=== PATIENT | female | born 1950 | race Caucasian/White ===

== ENCOUNTER → 2016-09-30 | Day surgery (SDC) | payer MEDICARE ==
[~2016-09-30] MED LIST: ACULAR0.4 ML OPH; ADVAIR DISKUS 21 DSK INH; BALSALAZIDE DI750 MG PO; BENTYL10 MG PO; CALCIUM WITH D1 CTB PO; CIPRO500 MG PO; FLEXERIL10 MG PO; FOLIC ACID1 MG PO; FORTICAL200 IU/ACT NAS; FORTICAL200 IU/ACT NS; FOSAMAX70 M1 PO; HYDROCODONE BIT1 T11 PO; LOMOTIL 0.025 M1 TA1 PO; LOMOTIL 0.025 M1 TAB PO; LOPID600 MG PO; METOPROLOL SR50 MG PO; MOTRIN600 MG PO; NORVASC10 MG PO; OCUFLOX 0.3% 5 M5 ML OPH; OLANZAPINE5 MG PO; PEPCID40 MG PO; PRED FORTE 1 ML1 ML OP; PRILOSEC20 MG PO; PRILOSEC40 M1 PO; PROZAC20 MG PO; QUESTRAN LIGHT4 GM PO; TRAZODONE150 MG PO; VALIUM10 MG PO; VALIUM5 MG PO
--- NOTE | ~2016-09-30 | O ---
[place], [place] OPERATIVE NOTE NAME: [id number] UNIT #: [id number] ROOM: DOCTOR: RITO MARTINEZJAMAICA BIRTHDATE: [birth year] DOS: 09/30/2016 This is a 65-year-old patient who was presented with chief complaint of diarrhea, undergone investigation. The patient has been given sulfasalazine. Apparently, the patient developed more diarrhea may be because she is allergic to sulfa moiety of the sulfasalazine. FAMILY HISTORY: Noncontributory. PAST MEDICAL HISTORY: Hypertension, hypercholesterolemia, anxiety, fibromyalgia. PAST SURGICAL HISTORY: Tubal ligation, hysterectomy and ankle tendon repair. PROCEDURE: Today's procedure part of investigation is colonoscopy plus polypectomy plus biopsy. PREMEDICATION: Versed and Diprivan. SCOPE: Olympus folding colonoscope 10L video. REPORT: After putting the patient in the left lateral position and after application of lubricant to the scope, the scope was introduced. Thereafter, under direct visualization, advanced through the length of colon without difficulty. Base of the cecum explored, appendiceal orifice identified, and ileocecal valve was defined. Sessile polypoid lesion from base of cecum was identified with piecemeal polypectomy removed. Ileocecal valve was photographed. The scope was gradually withdrawn from ascending, transverse, and descending colon. Random biopsies from transverse colon was obtained. The patient extubated, tolerated the procedure well. IMPRESSION: 1. Sessile polypoid lesion of cecum, status post piecemeal polypectomy. 2. History of diarrhea, status post multiple biopsies, random colon biopsies ruling out collagenous colitis. On the other hand, the patient remains with multiple bowel movements. Apparently, the patient is not that reliable as far as information and compliance is concerned. However, we are going to try her on Questran 1 pack b.i.d. as well as famotidine 40 mg daily. We are going to discontinue her omeprazole in case this is side effect of omeprazole. We are going to do a celiac sprue panel, and we are going to start her on balsalazide 750 mg 2 tablets b.i.d. to see if we can bring some relief in management of her diarrhea while investigation and the workup in progress. Thank you very much indeed. [place], [place] OPERATIVE NOTE NAME: SHERMAN CARLOS UNIT #: [id number] ROOM: DOCTOR: RITO MARTINEZ,[place]AMA[place] BIRTHDATE: [birth year] J[place] VERAS MD CM:OPRECORD:OPERATIVE NOTE [id number] NEHEMIAS VERAS MD 09/30/161946 interface
[2016-09-30 12:44] VITALS: BP 152/71
[2016-09-30 14:03] VITALS: BP 128/54
[2016-09-30 14:18] VITALS: BP 134/81
[2016-09-30 14:33] VITALS: BP 122/65
== END | disposition home or self-care (01) ==
LOC: SDC 09-28 08:00
DX: D12.0 Benign neoplasm of cecum (principal); I10 Essential (primary) hypertension; E78.00 Pure hypercholesterolemia, unspecified; F41.9 Anxiety disorder, unspecified; M79.7 Fibromyalgia; J44.9 Chronic obstructive pulmonary disease, unspecified; F32.9 Major depressive disorder, single episode, unspecified; I51.7 Cardiomegaly; M19.90 Unspecified osteoarthritis, unspecified site; K21.9 Gastro-esophageal reflux disease without esophagitis; Z98.890 Other specified postprocedural states; Z90.710 Acquired absence of both cervix and uterus; Z98.51 Tubal ligation status; Z87.891 Personal history of nicotine dependence; Z82.3 Family history of stroke

== ENCOUNTER → 2016-10-05 | Outpatient (CLI) | payer MEDICARE ==
[2016-10-06 14:11] LABS: t-TRANSGLUTAMINASE (tTG) IgG <2 U/mL (0-5)
== END | disposition home or self-care (01) ==
LOC: LAB 10:34
PROVIDERS: Internal Medicine Gastroenterology
DX: K90.0 Celiac disease (principal)

== ENCOUNTER → 2016-11-02 | Outpatient (CLI) | payer MEDICARE, OTHER | END | disposition home or self-care (01) | LOC: LAB 08:54 | DX: R19.7 Diarrhea, unspecified (principal) ==

== ENCOUNTER → 2016-11-11 | Outpatient (CLI) | payer MEDICARE, OTHER ==
[2016-11-14 17:04] LABS: CREATININE, RANDOM URINE 68.6 mg/dL (Not Estab.)
== END | disposition home or self-care (01) ==
LOC: LAB 11:24
PROVIDERS: Internal Medicine Gastroenterology
DX: R19.7 Diarrhea, unspecified (principal)

== ENCOUNTER → 2016-11-16 | Outpatient (CLI) | payer MEDICARE, OTHER | END | disposition home or self-care (01) | LOC: CT 14:46 | DX: A08.8 Other specified intestinal infections (principal); R11.2 Nausea with vomiting, unspecified ==

== ENCOUNTER 2017-04-19 10:22 | Emergency (ER) | payer MEDICARE, OTHER ==
[~2017-04-19] VITALS: Ht 149.8 cm; Wt 63.5 kg
[2017-04-19 10:30] VITALS: BP 179/78
[2017-04-19] MEDS ORDERED: NAPROSYN500 MG PO (10:46)
== END 2017-04-19 12:35 | disposition home or self-care (01) ==
LOC: ED 10:22
DX: S42.252A Displaced fracture of greater tuberosity of left humerus, initial encounter for closed fracture (principal); F10.10 Alcohol abuse, uncomplicated; Z88.2 Allergy status to sulfonamides; Z90.710 Acquired absence of both cervix and uterus; Z79.899 Other long term (current) drug therapy; W11.XXXA Fall on and from ladder, initial encounter; Y93.89 Activity, other specified; Y92.89 Other specified places as the place of occurrence of the external cause; Y99.8 Other external cause status

== ENCOUNTER → 2017-05-02 | Outpatient (CLI) | payer MEDICARE, OTHER ==
[~2017-05-02] MED LIST changes: +NAPROSYN500 MG PO
== END ==
LOC: CT 13:46
DX: S42.302D Unspecified fracture of shaft of humerus, left arm, subsequent encounter for fracture with routine healing (principal); M19.012 Primary osteoarthritis, left shoulder; M25.412 Effusion, left shoulder; X58.XXXD Exposure to other specified factors, subsequent encounter

== ENCOUNTER → 2017-08-28 | Outpatient (CLI) | payer MEDICARE, OTHER | END | disposition home or self-care (01) | LOC: RAD 12:10 | DX: M47.816 Spondylosis without myelopathy or radiculopathy, lumbar region (principal) ==

== ENCOUNTER → 2017-09-13 | Outpatient (CLI) | payer MEDICARE, OTHER | END | disposition home or self-care (01) | LOC: MRI 01:51 | DX: M47.816 Spondylosis without myelopathy or radiculopathy, lumbar region (principal) ==

== ENCOUNTER → 2018-02-08 | Outpatient (CLI) | payer MEDICARE, OTHER | END | disposition home or self-care (01) | LOC: RAD 12:53 | DX: Z13.820 Encounter for screening for osteoporosis (principal); Z78.0 Asymptomatic menopausal state ==

== ENCOUNTER → 2018-04-16 | Outpatient (CLI) | payer MEDICARE, OTHER | END | disposition home or self-care (01) | LOC: US 17:00 | DX: M54.2 Cervicalgia (principal); G89.29 Other chronic pain ==

== ENCOUNTER → 2018-08-23 | Outpatient (CLI) | payer MEDICARE, OTHER ==
[~2018-08-23] MED LIST changes: +KEFLEX500 M1 PO
== END | disposition home or self-care (01) ==
LOC: US 03:02
DX: E07.9 Disorder of thyroid, unspecified (principal)

== ENCOUNTER → 2019-10-21 | Outpatient (CLI) | payer MEDICARE, OTHER | END | disposition home or self-care (01) | LOC: CT 12:44 | DX: Z47.1 Aftercare following joint replacement surgery (principal); M25.512 Pain in left shoulder ==

== ENCOUNTER → 2020-05-04 | Outpatient (CLI) | payer MEDICARE, OTHER | END | disposition home or self-care (01) | LOC: MAMMO 10:57 | PROVIDERS: ATTEND Internal Medicine | DX: Z12.31 Encounter for screening mammogram for malignant neoplasm of breast (principal) ==

== ENCOUNTER → 2021-02-17 | Outpatient (CLI) | payer MEDICARE, OTHER | END | disposition home or self-care (01) | LOC: MRI 02-10 13:00 | PROVIDERS: ATTEND Physical Medicine & Rehabilitation | DX: H70.91 Unspecified mastoiditis, right ear (principal); M50.223 Other cervical disc displacement at C6-C7 level ==

== ENCOUNTER 2021-04-10 17:11 | Inpatient (IN) | payer MEDICARE, OTHER ==
[~2021-04-10] VITALS: Ht 149.8 cm; Wt 66.0 kg
[2021-04-10 17:15] VITALS: BP 138/58
[2021-04-10 17:51] LABS: BASO # 0.1 10*3/uL (0.0-0.1); BASO % 0.6 % (0.0-1.0); EOS # 0.3 10*3/uL (0.0-0.4); EOS % 3.2 % (1.0-4.0); HEMATOCRIT 38.8 % (37.0-47.0); LYMPH # 1.5 10*3/uL (1.3-4.4); LYMPH % 14.4 % (27.0-41.0); MEAN CELL VOLUME 94.9 fl (81.0-99.0); MEAN CORPUSCULAR HGB 31.1 pg (27.0-31.0); MEAN CORPUSCULAR HGB CONC 32.7 g/dl (33.0-37.0); MONO # 0.7 10*3/uL (0.1-1.0); MONO % 6.6 % (3.0-9.0); NEUT # 7.9 10*3/uL (2.3-7.9); NEUT % 74.9 % (47.0-73.0); PLATELET COUNT AUTOMATED 233 10*3/uL (130-400); RED BLOOD COUNT 4.09 10*6/uL (4.10-5.10); RED CELL DISTRI WIDTH 13.1 % (0-14.5); WHITE BLOOD COUNT 10.6 10*3/uL (4.8-10.8)
[2021-04-10 18:10] LABS: ALBUMIN 3.5 gm/dl (3.1-4.5); ALKALINE PHOSPHATASE 63 U/L (45-117); BUN 12 mg/dl (7-24); CHLORIDE 105 mmol/L (98-107); CREATININE 1.04 mg/dL (0.55-1.02); POTASSIUM 3.3 mmol/L (3.5-5.1); SGOT/AST 19 IU/L (3-35); SGPT/ALT 38 U/L (12-78); SODIUM 140 mmol/L (136-145)
[2021-04-10 19:12] VITALS: BP 153/66
[2021-04-10] MEDS ORDERED: HYDROCHLOROTH12.5 M2 PO (20:15)
[2021-04-10] MEDS ORDERED: DICYCLOMINE HCL10 MG PO (20:16)
[2021-04-10] MEDS ORDERED: TOPCARE ARTHRI650 MG PO (20:17)
[2021-04-10] MEDS ORDERED: FLUOXETINE HYDR20 M1 PO (20:17)
[2021-04-10] MEDS ORDERED: TRAZODONE100 MG PO (20:19)
[2021-04-10] MEDS ORDERED: METOPROLOL TART50 M1 PO (20:21)
[2021-04-10 23:35] VITALS: BP 144/69
[2021-04-11] VITALS (8 sets, daily range): BP systolic 130–165; BP diastolic 52–80
[2021-04-11 05:59] LABS: BASO % 0.4 % (0.0-1.0); EOS # 0.2 10*3/uL (0.0-0.4); EOS % 2.2 % (1.0-4.0); HEMATOCRIT 40.5 % (37.0-47.0); LYMPH # 2.3 10*3/uL (1.3-4.4); LYMPH % 22.6 % (27.0-41.0); MEAN CELL VOLUME 94.2 fl (81.0-99.0); MEAN CORPUSCULAR HGB 30.9 pg (27.0-31.0); MEAN CORPUSCULAR HGB CONC 32.8 g/dl (33.0-37.0); MEAN PLATELET VOLUME 9.5 fl (9.6-12.3); MONO # 1.3 10*3/uL (0.1-1.0); NEUT # 6.3 10*3/uL (2.3-7.9); NEUT % 61.5 % (47.0-73.0); PLATELET COUNT AUTOMATED 269 10*3/uL (130-400); WHITE BLOOD COUNT 10.2 10*3/uL (4.8-10.8)
[2021-04-11 06:06] LABS: BUN 10 mg/dl (7-24); CHLORIDE 105 mmol/L (98-107); CREATININE 0.95 mg/dL (0.55-1.02); POTASSIUM 3.1 mmol/L (3.5-5.1); SODIUM 140 mmol/L (136-145)
[2021-04-11 06:11] LABS: CHOLESTEROL 208 mg/dL (<200); LDL CHOLESTEROL 113 mg/dL (9-159); TRIGLYCERIDES 163 mg/dl (<150)
[2021-04-11 16:22] LABS: BILIRUBIN Negative (Negative); BLOOD Trace-Lysed (Negative); CLARITY Turbid (Clear); COLOR Yellow (Yellow); GLUCOSE Negative (Negative); KETONE Negative (Negative); LEUKO ESTERASE 2+ (Negative); NITRITE Negative (Negative); PH 7.5 (4.5-8.0); UROBILINOGEN 0.2 E.U./dl (0.0-1.0)
[2021-04-11 16:33] LABS: BACTERIA 2+; WBC 21-30 wbc/hpf (0-5)
[2021-04-12 03:47] VITALS: BP 128/50
[2021-04-12 04:30] LABS: BASO % 0.5 % (0.0-1.0); EOS # 0.3 10*3/uL (0.0-0.4); EOS % 4.1 % (1.0-4.0); LYMPH # 2.2 10*3/uL (1.3-4.4); LYMPH % 29.2 % (27.0-41.0); MEAN CELL VOLUME 94.7 fl (81.0-99.0); MEAN CORPUSCULAR HGB 31.3 pg (27.0-31.0); MEAN CORPUSCULAR HGB CONC 33.1 g/dl (33.0-37.0); MEAN PLATELET VOLUME 9.3 fl (9.6-12.3); MONO # 1.2 10*3/uL (0.1-1.0); MONO % 15.7 % (3.0-9.0); NEUT # 3.8 10*3/uL (2.3-7.9); NEUT % 50.2 % (47.0-73.0); PLATELET COUNT AUTOMATED 213 10*3/uL (130-400); RED CELL DISTRI WIDTH 12.9 % (0-14.5); WHITE BLOOD COUNT 7.6 10*3/uL (4.8-10.8)
[2021-04-12 04:45] LABS: BUN 8 mg/dl (7-24); CHLORIDE 110 mmol/L (98-107); CREATININE 0.72 mg/dL (0.55-1.02); POTASSIUM 3.3 mmol/L (3.5-5.1); SODIUM 141 mmol/L (136-145)
[2021-04-12 06:06] VITALS: BP 103/67
[2021-04-12 08:54] VITALS: BP 153/119
[2021-04-12 10:30] VITALS: BP 150/62
[2021-04-12 18:45] VITALS: BP 160/70; BP 168/72
[2021-04-13] VITALS (10 sets, daily range): BP systolic 115–172; BP diastolic 52–99
[2021-04-13 13:47] LABS: VITAMIN D, 25-HYDROXY 22.9 ng/mL (30-100)
[2021-04-14] VITALS: BP 127/53
[2021-04-14 06:39] LABS: HEMATOCRIT 33.8 % (37.0-47.0); LYMPH # 1.1 10*3/uL (1.3-4.4); LYMPH % 12.2 % (27.0-41.0); MEAN CELL VOLUME 93.4 fl (81.0-99.0); MEAN CORPUSCULAR HGB 31.2 pg (27.0-31.0); MEAN CORPUSCULAR HGB CONC 33.4 g/dl (33.0-37.0); MEAN PLATELET VOLUME 9.6 fl (9.6-12.3); MONO # 0.6 10*3/uL (0.1-1.0); MONO % 7.2 % (3.0-9.0); NEUT # 6.9 10*3/uL (2.3-7.9); NEUT % 79.1 % (47.0-73.0); PLATELET COUNT AUTOMATED 215 10*3/uL (130-400); RED BLOOD COUNT 3.62 10*6/uL (4.10-5.10); RED CELL DISTRI WIDTH 12.5 % (0-14.5); WHITE BLOOD COUNT 8.7 10*3/uL (4.8-10.8)
[2021-04-14 08:00] VITALS: BP 173/81
[2021-04-14 12:00] VITALS: BP 149/64
[2021-04-14 16:00] VITALS: BP 137/69
[2021-04-14 20:00] VITALS: BP 149/60
[2021-04-15] VITALS: BP 152/77
[2021-04-15 08:00] VITALS: BP 159/48
[2021-04-15 12:00] VITALS: BP 167/61
[2021-04-15] MEDS ORDERED: HYDROCODONE-AC1 EAC1 PO (12:28)
[2021-04-15] MEDS ORDERED: OMNICEF300 MG PO (12:28)
[2021-04-15] MEDS ORDERED: VALIUM10 MG PO (12:28)
[2021-04-15] MEDS ORDERED: ASPIRIN CHILDRE81 MG PO (12:28)
[2021-04-15] MEDS ORDERED: ACETAMINOPHEN325 M2 PO (12:28)
[2021-04-15] MEDS ORDERED: VITAMIN D350 MC2 PO (12:28)
[2021-04-15 16:00] VITALS: BP 163/71
== END 2021-04-15 18:34 | DRG 492 ==
LOC: ED 17:11 → EDHOLD 18:41 → 5E 18:41 → EDHOLD 04-11 09:48 → 5E 04-12 18:42
PROVIDERS: Emergency Medicine; Hospitalist; Internal Medicine; Registered Nurse; ADMIT Student in an Organized Health Care Education/Training Program; ATTEND Student in an Organized Health Care Education/Training Program
PROC: 0SSFXZZ Reposition Right Ankle Joint, External Approach (ICD-10-PCS; 2021-04-10)
PROC: 2W3LX1Z Immobilization of Right Lower Extremity using Splint (ICD-10-PCS; 2021-04-10)
PROC: 0QSJ04Z Reposition Right Fibula with Internal Fixation Device, Open Approach (ICD-10-PCS; principal; 2021-04-13)
PROC: 0QSG04Z Reposition Right Tibia with Internal Fixation Device, Open Approach (ICD-10-PCS; 2021-04-13)
PROC: 3E0T3BZ Introduction of Anesthetic Agent into Peripheral Nerves and Plexi, Percutaneous Approach (ICD-10-PCS; 2021-04-13)
PROC: 3E0T33Z Introduction of Anti-inflammatory into Peripheral Nerves and Plexi, Percutaneous Approach (ICD-10-PCS; 2021-04-13)
DX: S82.851A Displaced trimalleolar fracture of right lower leg, initial encounter for closed fracture (principal); N17.0 Acute kidney failure with tubular necrosis; E87.2 Acidosis; N30.00 Acute cystitis without hematuria; F41.9 Anxiety disorder, unspecified; R19.7 Diarrhea, unspecified; Z20.822 Contact with and (suspected) exposure to COVID-19; W19.XXXA Unspecified fall, initial encounter; R00.1 Bradycardia, unspecified; R73.9 Hyperglycemia, unspecified; E87.6 Hypokalemia; I10 Essential (primary) hypertension; M79.7 Fibromyalgia; M19.90 Unspecified osteoarthritis, unspecified site; E78.5 Hyperlipidemia, unspecified; F32.A Depression, unspecified; M85.871 Other specified disorders of bone density and structure, right ankle and foot; Y92.009 Unspecified place in unspecified non-institutional (private) residence as the place of occurrence of the external cause; Y93.89 Activity, other specified; Y99.8 Other external cause status; Z88.2 Allergy status to sulfonamides; Z90.49 Acquired absence of other specified parts of digestive tract; Z90.710 Acquired absence of both cervix and uterus; Z87.891 Personal history of nicotine dependence; Z79.1 Long term (current) use of non-steroidal anti-inflammatories (NSAID); Z79.899 Other long term (current) drug therapy

== ENCOUNTER → 2021-04-28 | Outpatient (CLI) | payer MEDICARE, OTHER ==
[~2021-04-28] MED LIST changes: +ACETAMINOPHEN325 M2 PO; +ASPIRIN CHILDRE81 MG PO; +DICYCLOMINE HCL10 MG PO; +FLUOXETINE HYDR20 M1 PO; +HYDROCHLOROTH12.5 M2 PO; +HYDROCODONE-AC1 EAC1 PO; +METOPROLOL TART50 M1 PO; +OMNICEF300 MG PO; +TOPCARE ARTHRI650 MG PO; +TRAZODONE100 MG PO; +VITAMIN D350 MC2 PO
== END | disposition home or self-care (01) ==
LOC: ORTHO 00:31
PROVIDERS: ATTEND Orthopaedic Surgery
DX: S82.301D Unspecified fracture of lower end of right tibia, subsequent encounter for closed fracture with routine healing (principal); S82.831D Other fracture of upper and lower end of right fibula, subsequent encounter for closed fracture with routine healing; X58.XXXD Exposure to other specified factors, subsequent encounter

== ENCOUNTER → 2021-05-06 | Day surgery (SDC) | payer MEDICARE, OTHER ==
[2021-05-06] VITALS (8 sets, daily range): BP systolic 137–171; BP diastolic 56–77
[~2021-05-06] VITALS: Ht 147.3 cm; Wt 67.6 kg
[~2021-05-06] MED LIST changes: +ANTI-DIARRHEAL2 MG PO; +B121000 MCG/1 IM; +VISTARIL50 MG PO; +VITAMIN D3125 MC1 PO; +XARELTO10 MG PO
== END | disposition home or self-care (01) ==
LOC: SDC 05-05 08:00
PROVIDERS: ATTEND Orthopaedic Surgery
DX: S82.851A Displaced trimalleolar fracture of right lower leg, initial encounter for closed fracture (principal); E87.2 Acidosis; E87.6 Hypokalemia; R73.9 Hyperglycemia, unspecified; E78.5 Hyperlipidemia, unspecified; N17.0 Acute kidney failure with tubular necrosis; I10 Essential (primary) hypertension; J44.9 Chronic obstructive pulmonary disease, unspecified; F32.9 Major depressive disorder, single episode, unspecified; F41.9 Anxiety disorder, unspecified; M79.7 Fibromyalgia; K21.9 Gastro-esophageal reflux disease without esophagitis; Z87.891 Personal history of nicotine dependence; M19.90 Unspecified osteoarthritis, unspecified site; W19.XXXA Unspecified fall, initial encounter; Y93.89 Activity, other specified; Y92.89 Other specified places as the place of occurrence of the external cause; Y99.8 Other external cause status

== ENCOUNTER → 2021-06-01 | Outpatient (CLI) | payer MEDICARE, OTHER | LOC: ORTHO 00:38 | PROVIDERS: ATTEND Orthopaedic Surgery | DX: S82.851S Displaced trimalleolar fracture of right lower leg, sequela (principal); M77.31 Calcaneal spur, right foot; X58.XXXS Exposure to other specified factors, sequela ==

== ENCOUNTER → 2021-06-21 | Outpatient (CLI) | payer MEDICARE, OTHER | END | disposition home or self-care (01) | LOC: ORTHO 00:25 | PROVIDERS: ATTEND Orthopaedic Surgery | DX: S82.851S Displaced trimalleolar fracture of right lower leg, sequela (principal); X58.XXXS Exposure to other specified factors, sequela ==

== ENCOUNTER → 2021-08-09 | Outpatient (CLI) | payer MEDICARE, OTHER | END | disposition home or self-care (01) | LOC: ORTHO 00:36 | PROVIDERS: ATTEND Orthopaedic Surgery | DX: S82.851S Displaced trimalleolar fracture of right lower leg, sequela (principal); X58.XXXS Exposure to other specified factors, sequela ==

== ENCOUNTER → 2021-10-25 | Outpatient (CLI) | payer MEDICARE, OTHER | END | disposition home or self-care (01) | LOC: ORTHO 04:10 | PROVIDERS: ATTEND Orthopaedic Surgery | DX: S82.851S Displaced trimalleolar fracture of right lower leg, sequela (principal); M79.89 Other specified soft tissue disorders; X58.XXXD Exposure to other specified factors, subsequent encounter ==

== ENCOUNTER 2022-10-17 11:51 | Emergency (ER) | payer MEDICARE, OTHER ==
[~2022-10-17] VITALS: Ht 149.8 cm; Wt 68.0 kg
[2022-10-17 12:09] VITALS: BP 182/82
[2022-10-17] MEDS ORDERED: LEVOTHYROXINE75 MCG PO (12:13)
[2022-10-17] MEDS ORDERED: REXULTI2 MG PO (12:14)
== END 2022-10-17 14:25 | disposition home or self-care (01) ==
LOC: ED 11:51
DX: H53.8 Other visual disturbances (principal); Z88.6 Allergy status to analgesic agent; Z79.899 Other long term (current) drug therapy; Z90.49 Acquired absence of other specified parts of digestive tract; Z90.710 Acquired absence of both cervix and uterus; Z87.891 Personal history of nicotine dependence

== ENCOUNTER → 2023-03-28 | Outpatient (CLI) | payer MEDICARE, OTHER ==
[~2023-03-28] MED LIST changes: +LEVOTHYROXINE75 MCG PO; +REXULTI2 MG PO
== END | disposition home or self-care (01) ==
LOC: CT 15:49
PROVIDERS: ATTEND Orthopaedic Surgery
DX: M19.071 Primary osteoarthritis, right ankle and foot (principal); M79.89 Other specified soft tissue disorders; M85.871 Other specified disorders of bone density and structure, right ankle and foot

== ENCOUNTER → 2024-12-10 | Outpatient (CLI) | payer MEDICARE | END | disposition home or self-care (01) | LOC: RAD 12:59 | PROVIDERS: ATTEND Nurse Practitioner Family | DX: M25.571 Pain in right ankle and joints of right foot (principal); R06.09 Other forms of dyspnea; Z98.890 Other specified postprocedural states ==